=== PATIENT | female | born 1995 | race Caucasian/White ===

== ENCOUNTER 2016-12-18 08:59 | Emergency (ER) | payer OTHER ==
[~2016-12-18] VITALS: Ht 172.7 cm; Wt 129.3 kg
[~2016-12-18 08:59] MED LIST: ADIPEX-P37.5 M2 PO; SYNTHROID0.137 MG PO
[2016-12-18 09:19] VITALS: BP 128/96
--- NOTE | 2016-12-18 09:20 | Urgent Treatment Center Report ---
History of Present Issue Date/Time Seen by Provider 12/18/16 0937 Visit Reason Pt arrived:Walked Presenting Problem:RT EAR PAIN AND SORE THROAT. Location if Accident: Onset of symptoms date/time:/ or onset unknown for:MEDICAL HX UNKNOWN Have you (or family members/close friends) recently traveled outside the [place]? N If Yes, where/when: Have you had exposure to infectious disease within the past month? TB? Other? Specify: c/o primarily of sore throat. Right ear pain 2 weeks ago. 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 Ear pain improved and only intermittent now. Primarily at night and in the morning. "I am mostly worried about my sore throat and just want to be sure not strep and just drainage". Sore throat started day before yesterday. Initially intermittent but constant yesterday and continued this morning. Mucinex hasn't helped. Still using flonase. 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 Source patient Exam Limitations no limitations ALLERGIES Coded Allergies: No Known Allergies (08/31/16) Home Medications Reported Medications LEVOTHYROXINE SOD (Synthroid) 0.5 MG PO DAILY Phentermine HCl (Adipex-P) 37.5 MG PO DAILY History Medical History General CAD? No Angina: No [place]: No Hypertension? No Hyperlipidemia? No CHF? No DVT? No PE? No COPD? No Asthma? No Anemia? No GERD? No Gastric ulcers? No GI Bleed? No Hernia? No Thyroid Problems? No Hypothyroidism? No CVA? No Seizures? No Diabetes? No Renal Insuffiency? No UTI? No Stones? No BPH? No GB Disease: No Nephritic Syndrome? No Asplenia? No Hepatitis? No Sickle Cell Disease? No Arthritis? No Migraines? No Cataracts? No Glaucoma? No MRSA? No HIV? No TB? No Anxiety? No Depression? No Cancer? No Site: N More? No Immunization HX DT/Tetanus 1-4 Years Ago Surgical Hx Previous Surgery?N Social History Smoking Hx Smoker: Never Smoker Tobacco: No Alcohol Alcohol: No Review of Systems All Other Systems Reviewed and Negative Constitutional denies fever, denies malaise Eyes denies drainage ENT see HPI, other (no change hearing). denies: ear discharge, nose discharge, nose congestion, throat swelling. Respiratory cough (very little, "from a tickle"), denies shortness of breath, denies wheezing Cardiovascular denies chest pain Gastrointestinal denies no symptoms reported Musculoskeletal denies other (no aches) Skin denies rash Psychiatric/Neurological denies headache Physical Exam Vital Signs Vital Signs Date Time Temp Pulse Resp B/P Pulse O2 O2 Flow FiO2 Ox Delivery Rate 12/18 908 97.9 90 18 128/96 96 General Appearance normal appearance, no apparent distress Eye Exam - bilateral eye normal exam Ear, Nose, Throat normal ENT inspection Neck non-tender, supple Respiratory Status No: respiratory distress, productive cough, non productive cough. Lung Sounds anterior: lungs clear. posterior: lungs clear. bilateral: lungs clear. Cardiovascular regular rate/rhythm, no peripheral edema, no murmur Neurologic alert, oriented x 3 Skin normal color, warm/dry Lymphatic no adenopathy Medical Decision Making LABS/Meds/Orders Pt receiving controlled substance in ED? No Results/Orders Laboratory Tests 12/18/16910: Group A Strep Screen NOT DETECTED Orders Procedure Date/time Status [facility] STREP SCREEN 12/18 910 Complete Departure Departure Time of Disposition 916 Disposition [place] Home or Self Care(routine) Clinical Impression Primary Impression: Acute pharyngitis Qualifiers: Pharyngitis/tonsillitis etiology: unspecified etiology Qualified Code: J02.9 - Acute pharyngitis, unspecified Condition STABLE Referrals NO REFERRAL Follow up with primary care IMMEDIATELY for new or worsening symptoms OR no noticeable improvement over the next 48-72 hours. 911 for difficulty breathing or swallowing. Patient Instructions DI for Viral Pharyngitis Additional Instructions * No sign of bacterial infection. * Monitor Temp. Tylenol every 4 hours as needed and/or ibuprofen every 6 hours as needed (as long as your primary care doctor has told you that it is ok to take both) for fever/aches/pain. ER if fever no less than 101 despite tylenol and ibuprofen * Encourage fluids, water, gatorade, powerade, pedialyte if infant/toddler/child * warm salt water gargles * warm fluids * sore throat lozenges * sleep elevated * humidifier/vaporizer * Continue flonase 2 sprays each nostril daily but may take 2-3 days to notice improvement with it. * STOP mucinex unless your cough worsens or you develop chest congestion. Start claritin D instead. Either 12 hour twice a day or one 24 hour daily. * * Your throat swab was sent for culture. Those results are typically sent to your primary care. Be sure to follow up in 2-3 days if no improvement so they can review those results and treat if necessary. If you don't have primary care, I recommend you get one but in the mean time, you will have to return to a walk in clinic Discharge Counseling Counseled pt/family regarding diagnosis, test results, medications/RX, home care, follow up needs at [phone]
--- NOTE | 2016-12-18 09:20 | Urgent Treatment Center Report ---
History of Present Issue Date/Time Seen by Provider 12/18/16 0922 Visit Reason Pt arrived:Walked Presenting Problem:RT EAR PAIN AND SORE THROAT. Location if Accident: Onset of symptoms date/time:/ or onset unknown for:MEDICAL HX UNKNOWN Have you (or family members/close friends) recently traveled outside the [place]? N If Yes, where/when: Have you had exposure to infectious disease within the past month? TB? Other? Specify: c/o primarily of sore throat. Right ear pain 2 weeks ago. 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 Started flonase. Ear pain improved and only intermittent now. Primarily at night and in the morning. "I am mostly worried about my sore throat and just want to be sure not strep and just drainage". Sore throat started day before yesterday. Initially intermittent but constant yesterday and continued this morning. Mucinex hasn't helped. Still using flonase. 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 Source patient Exam Limitations no limitations ALLERGIES Coded Allergies: No Known Allergies (08/31/16) Home Medications Reported Medications LEVOTHYROXINE SOD (Synthroid) 0.5 MG PO DAILY Phentermine HCl (Adipex-P) 37.5 MG PO DAILY History Medical History General CAD? No Angina: No [place]: No Hypertension? No Hyperlipidemia? No CHF? No DVT? No PE? No COPD? No Asthma? No Anemia? No GERD? No Gastric ulcers? No GI Bleed? No Hernia? No Thyroid Problems? No Hypothyroidism? No CVA? No Seizures? No Diabetes? No Renal Insuffiency? No UTI? No Stones? No BPH? No GB Disease: No Nephritic Syndrome? No Asplenia? No Hepatitis? No Sickle Cell Disease? No Arthritis? No Migraines? No Cataracts? No Glaucoma? No MRSA? No HIV? No TB? No Anxiety? No Depression? No Cancer? No Site: N More? No Immunization HX DT/Tetanus 1-4 Years Ago Surgical Hx Previous Surgery?N Social History Smoking Hx Smoker: Never Smoker Tobacco: No Alcohol Alcohol: No Review of Systems All Other Systems Reviewed and Negative Constitutional denies fever, denies malaise Eyes denies drainage ENT see HPI, other (no change hearing). denies: ear discharge, nose discharge, nose congestion, throat swelling. Respiratory cough (very little, "from a tickle"), denies shortness of breath, denies wheezing Cardiovascular denies chest pain Gastrointestinal denies no symptoms reported Musculoskeletal denies other (no aches) Skin denies rash Psychiatric/Neurological denies headache Physical Exam Vital Signs Vital Signs Date Time Temp Pulse Resp B/P Pulse O2 O2 Flow FiO2 Ox Delivery Rate 12/18 908 97.9 90 18 128/96 96 General Appearance normal appearance, no apparent distress Eye Exam - bilateral eye normal exam Ear, Nose, Throat normal ENT inspection Neck non-tender, supple Respiratory Status No: respiratory distress, productive cough, non productive cough. Lung Sounds anterior: lungs clear. posterior: lungs clear. bilateral: lungs clear. Cardiovascular regular rate/rhythm, no peripheral edema, no murmur Neurologic alert, oriented x 3 Skin normal color, warm/dry Lymphatic no adenopathy Medical Decision Making LABS/Meds/Orders Pt receiving controlled substance in ED? No Results/Orders Laboratory Tests 12/18/16910: Group A Strep Screen NOT DETECTED Orders Procedure Date/time Status [facility] STREP SCREEN 12/18 910 Complete Departure Departure Time of Disposition 916 Disposition [place] Home or Self Care(routine) Clinical Impression Primary Impression: Acute pharyngitis Qualifiers: Pharyngitis/tonsillitis etiology: unspecified etiology Qualified Code: J02.9 - Acute pharyngitis, unspecified Condition STABLE Referrals NO REFERRAL Follow up with primary care IMMEDIATELY for new or worsening symptoms OR no noticeable improvement over the next 48-72 hours. 911 for difficulty breathing or swallowing. Patient Instructions DI for Viral Pharyngitis Additional Instructions * No sign of bacterial infection. * Monitor Temp. Tylenol every 4 hours as needed and/or ibuprofen every 6 hours as needed (as long as your primary care doctor has told you that it is ok to take both) for fever/aches/pain. ER if fever no less than 101 despite tylenol and ibuprofen * Encourage fluids, water, gatorade, powerade, pedialyte if infant/toddler/child * warm salt water gargles * warm fluids * sore throat lozenges * sleep elevated * humidifier/vaporizer * Continue flonase 2 sprays each nostril daily but may take 2-3 days to notice improvement with it. * STOP mucinex unless your cough worsens or you develop chest congestion. Start claritin D instead. Either 12 hour twice a day or one 24 hour daily. * * Your throat swab was sent for culture. Those results are typically sent to your primary care. Be sure to follow up in 2-3 days if no improvement so they can review those results and treat if necessary. If you don't have primary care, I recommend you get one but in the mean time, you will have to return to a walk in clinic Discharge Counseling Counseled pt/family regarding diagnosis, test results, medications/RX, home care, follow up needs at [phone]
--- OUTSIDE RECORDS SUMMARY | 2016-12-18 09:27 | External Medical Summary Rpt | CCD ---
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 S61.239A PNCTR W/O FB OF UNSP FINGER W/O DAMAGE TO NAIL, INIT Allergies, Adverse Reactions, Alerts Adverse Reaction to Substance Substance Reaction Severity NO KNOWN ALLERGIES Results Labs Lab Lab Date Result Refere Interp Status Commen Order Detail nces retati t Range on Varicella zoster virus IgG & IgM panel in Serum (02-10-2015 17:07) Varicel SEE complet la 015 BELOW ed zoster 17:07 virus IgG & IgM panel in Serum Hepatitis B virus surface Ab [Presence] in Serum by Immunoassay (02-10-2015 17:07) Hepatit POSITIV Negativ complet is B 015 E e ed virus 17:07 surface Ab [Presen ce] in Serum by Immunoa ssay
--- OUTSIDE RECORDS SUMMARY | 2016-12-18 09:27 | External Medical Summary Rpt | CCD ---
Author Author RAJWINDER Address Unknown Phone [email or web address] Purpose Continuity of Care Document - through 2016
--- OUTSIDE RECORDS SUMMARY | 2016-12-18 09:27 | External Medical Summary Rpt | CCD ---
Author Author RAJWINDER Address Unknown Phone Purpose Continuity of Care Document - through 2016
--- OUTSIDE RECORDS SUMMARY | 2016-12-18 09:27 | External Medical Summary Rpt | CCD ---
Author Author , RAJWINDER PURDY Address Unknown Phone [email or web address] Relationship Address Phone DANIAL, Next Of Kin Unknown Unavailable NEVIN Immunization Name Date Rout CVX Reac Dose Comm Prov Is Faci e tion ent ider Refu lity Give sed n HPV9 03-0 0.50 Hist [facility] No H198 5-20 mL oric CHATO A 17 al RAJINDER Info [place]AYITO rmat ion - Sour ce Unsp ecif ied HPV9 10-1 0.50 Hist [facility] No H198 4-20 mL oric CHATO A 16 al RAJINDER Info [place] rmat ion - Sour ce Unsp ecif ied HPV9 08-0 0.50 Hist [facility] No H198 9-20 mL oric CHATO A 16 al RAJINDER Info [place] rmat ion - Sour ce Unsp ecif ied José 04-2 10 999 Hist H198 No H198 o-IP 7-20 oric A A V 00 al Info rmat ion - Sour ce Unsp ecif ied MMR 04-2 3 999 Hist H198 No H198 7-20 oric A A 00 al Info rmat ion - Sour ce Unsp ecif ied DTaP 04-2 107 999 Hist H198 No H198 , UF 7-20 oric A A 00 al Info rmat ion - Sour ce Unsp ecif ied MMR 07-2 3 999 Hist H198 No H198 9-19 oric A A 97 al Info rmat ion - Sour ce Unsp ecif ied DTP- 07-2 22 999 Hist H198 No H198 Hib 9-19 oric A A 97 al Info rmat ion - Sour ce Unsp ecif ied Hep 03-1 8 999 Hist H198 No H198 B, 8-19 oric A A ped/ 97 al adol Info rmat ion - Sour ce Unsp ecif ied Vari 03-1 21 999 Hist H198 No H198 cell 8-19 oric A A a 97 al Info rmat ion - Sour ce Unsp ecif ied José 09-1 2 999 Hist H198 No H198 o-OP 7-19 oric A A V 96 al Info rmat ion - Sour ce Unsp ecif ied DTP- 09-1 22 999 Hist H198 No H198 Hib 7-19 oric A A 96 al Info rmat ion - Sour ce Unsp ecif ied DTP- 07-2 22 999 Hist H198 No H198 Hib 3-19 oric A A 96 al Info rmat ion - Sour ce Unsp ecif ied José 07-2 2 999 Hist H198 No H198 o-OP 3-19 oric A A V 96 al Info rmat ion - Sour ce Unsp ecif ied DTP- 05-2 22 999 Hist H198 No H198 Hib 8-19 oric A A 96 al Info rmat ion - Sour ce Unsp ecif ied [place] 05-2 Intr 2 999 Hist H198 No H198 o-OP 8-19 amus oric A A V 96 cula al r Info rmat ion - Sour ce Unsp ecif ied Hep 04-1 Intr 45 999 Hist H198 No H198 B, 6-19 amus oric A A UF 96 cula al r Info rmat ion - Sour ce Unsp ecif ied Hep 03-1 Intr 45 999 Hist [place] No [place] B, 6-19 amus oric UF 96 cula al r Info rmat ion - Sour ce Unsp ecif ied
--- OUTSIDE RECORDS SUMMARY | 2016-12-18 09:27 | External Medical Summary Rpt | CCD ---
Author Author , RAJWINDER PURDY Address Unknown Phone [email or web address] Name Relationship Address Phone DANIAL, Next [...] ied Hep 03-1 Intr 45 999 Hist [place] B, 6-19 amus oric UF 96 cula al r Info rmat ion - Sour ce Unsp ecif ied
--- OUTSIDE RECORDS SUMMARY | 2016-12-18 09:27 | External Medical Summary Rpt | CCD ---
Author Author , RAJWINDER Organization RAJWINDER Address Unknown Phone [email or web address] Purpose Continuity of Care Document - 04-07-2014 [...]
--- OUTSIDE RECORDS SUMMARY | 2016-12-18 09:28 | External Medical Summary Rpt ---
Author Author RAJWINDER Linares, [employer] Organization [employer] Address Unknown Phone Unavailable Results Hepatitis B virus surface Ab [Units/volume] in Serum by Immunoassay Observa Value Referen Units Interpr Notes Date tion ce etation Range Hepatitis NEGATIVE No No No Sep 7 B virus informati informati informati 2017 surface on in on in on in 12:44 PM Ab source source source [Units/vo data data data lume] in Serum by Immunoass ay Hepatic function 2000 panel in Serum or Plasma Observa Value Referen Units Interpr Notes Date tion ce etation Range Albumin 3.4 - 5.0 gm/dL Normal No Aug 31 [Mass/vol informati 2017 9:05 ume] in on in AM Serum or source Plasma data Alkaline 46 - 116 U/L Normal No Aug 31 phosphata informati 2017 9:05 se on in AM [Enzymati source c data activity/ volume] in Serum or Plasma Bilirubin 0.0 - 0.2 mg/dL Normal No Aug 31 .direct informati 2017 9:05 [Mass/vol on in AM ume] in source Serum or data Plasma Bilirubin 0 - 0.9 mg/dL Normal No Aug 31 .indirect informati 2017 9:05 on in AM [Mass/vol source ume] in data Serum or Plasma Bilirubin 0.2 - 1.0 mg/dL Normal No Aug 31 .total informati 2017 9:05 [Mass/vol on in AM ume] in source Serum or data Plasma Aspartate 15 - 37 U/L Normal No Aug 31 informati 2017 9:05 aminotran on in AM sferase source [Enzymati data c activity/ volume] in Serum or Plasma Alanine 12 - 78 U/L Normal No Aug 31 aminotran informati 2017 9:05 sferase on in AM [Enzymati source c data activity/ volume] in Serum or Plasma Protein 6.4 - 8.2 gm/dL Normal No Aug 31 [Mass/vol informati 2017 9:05 ume] in on in AM Serum or source Plasma data PT & aPTT panel in Platelet poor plasma by Coagulation assay Observa Value Referen Units Interpr Notes Date tion ce etation Range INR in 0.9 - 1.1 No Normal INDICATIO Aug 31 Blood by informati N 2016 9:05 Coagulati on in AM on assay source INR data RANGETHER APY FOR DVT, PE, ATRIAL FIB; 2.0 - 3.0PROPHY LAXIS FOR VTETHERAP Y FOR MECHANICA L HEART 2.5 - 3.5VALVE; PREVENTIO N OF SYSTEMICE MBOLISM SECONDARY TO AMI Prothromb 9.4 - SECONDS Normal No Aug 31 in time 11.8 informati 2017 9:05 (PT) in on in AM Platelet source poor data plasma by Coagulati on assay Activated 23.6 - SECONDS Normal No Aug 31 partial 34.0 informati 2016 9:05 thrombpla on in AM stin time source (aPTT) data in Platelet poor plasma by Coagulati on assay CBC W Auto Differential panel in Blood Observa Value Referen Units Interpr Notes Date tion ce etation Range Basophils 0 - 0.2 K/MM3 Normal No Aug 31 informati 2017 9:05 [#/volume on in AM ] in source Blood by data Automated count Basophils 0.1 - 2.0 % Normal No Aug 31 /100 informati 2017 9:05 leukocyte on in AM s in source Blood by data Automated count Eosinophi 0.0 - 0.4 K/mm3 Normal No Aug 31 ls informati 2016 9:05 [#/volume on in AM ] in source Blood by data Automated count Eosinophi 0.1 - % Normal No Aug 31 ls/100 12.0 informati 2016 9:05 leukocyte on in AM s in source Blood by data Automated count Granulocy 1.8 - 7.8 K/mm3 Normal No Aug 31 erinn informati 2016 9:05 [#/volume on in AM ] in source Blood by data Automated count Granulocy 37.0 - % Normal No Aug 31 erinn/100 80.0 informati 2016 9:05 leukocyte on in AM s in source Blood by data Automated count Hematocri 37.0 - % Normal No Aug 31 t [Volume 47.0 informati 2016 9:05 on in AM Fraction] source of Blood data Hemoglobi 12.2 - g/dL Normal No Aug 31 n 16.2 informati 2016 9:05 [Mass/vol on in AM ume] in source Blood data Lymphocyt 0.7 - 4.5 K/mm3 Normal No Aug 31 es informati 2016 9:05 [#/volume on in AM ] in source Unspecifi data ed specimen by Automated count Lymphocyt 10 - 50.0 % Normal No Aug 31 es informati 2016 9:05 [#/volume on in AM ] in source Unspecifi data ed specimen by Automated count Erythrocy 27 - 31.2 pg Low No Aug 31 te mean informati 2016 9:05 corpuscul on in AM ar source hemoglobi data n [Entitic mass] Erythrocy 31.8 - g/dl Normal No Aug 31 te mean 35.4 informati 2017 9:05 corpuscul on in AM ar source hemoglobi data n concentra tion [Mass/vol ume] by Automated count Erythrocy 82.2 - fl Low No Aug 31 te mean 97.8 informati 2016 9:05 corpuscul on in AM ar volume source [Entitic data volume] by Automated count Monocytes 0.1 - 1.0 K/mm3 Normal No Aug 31 informati 2017 9:05 [#/volume on in AM ] in source Blood by data Automated count Monocytes 1.7 - 9.3 % Normal No Aug 31 /100 informati 2017 9:05 leukocyte on in AM s in source Blood by data Automated count Platelet 7.4 - fl Normal No Aug 31 mean 10.4 informati 2017 9:05 volume on in AM [Entitic source volume] data in Blood by Automated count Platelets 142 - 424 K/mm3 Normal No Aug 31 informati 2017 9:05 [#/volume on in AM ] in source Blood data Erythrocy 4.2 - 5.4 M/mm3 Normal No Aug 31 erinn informati 2017 9:05 [#/volume on in AM ] in source Amniotic data fluid Erythrocy 11.5 - % Normal No Aug 31 te 17.5 informati 2017 9:05 distribut on in AM ion width source [Entitic data volume] by Automated count Leukocyte 4.8 - K/MM3 Normal No Aug 31 s 10.8 informati 2016 9:05 [#/volume on in AM ] in source Blood data US THYROID Observa Value Referen Units Interpr Notes Date tion ce etation Range Markos's No No No No May 30 Daughte informa informa informa informa 2016 rs tion in tion in tion in tion in 8:43 PM Medical source source source source data data data data Center\ .br\[address]\ .br\[place] [address]\. br\Radi ology\. br\MARCOS ENT NAME: Nevin Ordoñez MR#: [id number]\ .br\PRO CEDURE DATE: 14\.br\ ACCESSI ON #: [id number] ROOM#:\ .br\ORD ERING PHYS: Leanna Caldwel l\.br\E XAM: Thyroid ultraso und, 016.\.b r\KIN RISON: None.\. br\VICTOR MANUEL CATION: Enlarge d thyroid gland.\ .br\FIN DINGS:\ .br\The right thyroid gland measure s 5.1 x 1.3 x 1.9 cm, and the left thyroid \.br\gl and measure d 5.4 x 1.2 x 1.9 cm. The isthmus measure s 2 mm in thickne ss.\.br \Slight ly enlarge d heterog eneous parench ymal echo texture s are noted\. br\bila terally without discret e thyroid nodule or lesion. No abnorma l\.br\c alcific ation is noted. Symmetr ic color flows are noted bilater ally.\. br\IMPR ESSION: Slightl y enlarge d heterog eneous appeara nce of bilater al thyroid \.br\gl and without discret e thyroid nodule or lesion. \.br\TH IS IS AN ELECTRO NICALLY VERIFIE D REPORT\ .br\05/04 8:40 PM: Huong Kolb MD\.br\ Huong Kolb MD\.br\ pn\.br\ DD: 016\.br \TD: 016\.br \JOB #: [id number]\. br\Radi ology\. br\Page 1 of 1 COPY Thyrotropin [Units/volume] in Serum or Plasma Observa Value Referen Units Interpr Notes Date tion ce etation Range Thyrotrop 0.30 - u[iU]/mL No No Mar 16 in 5.60 informati informati 2015 3:29 [Units/vo on in on in AM lume] in source source Serum or data data Plasma Cobalamin (Vitamin B12) [Mass/volume] in Serum Observa Value Referen Units Interpr Notes Date tion ce etation Range Cobalamin 180 - 914 pg/mL No No May 18 (Vitamin informati informati 2015 3:29 B12) on in on in AM [Mass/vol source source ume] in data data Serum Folate [Mass/volume] in Serum or Plasma Observa Value Referen Units Interpr Notes Date tion ce etation Range Folate >5.21 ng/mL No No May 18 [Mass/vol informati informati 2015 3:29 ume] in on in on in AM Serum or source source Plasma data data Thyroperoxidase Ab [Units/volume] in Serum or Plasma by Immunoassay Observa Value Referen Units Interpr Notes Date tion ce etation Range Thyropero 0.0 - 9.0 [iU]/mL No No May 18 xidase Ab informati informati 2015 3:42 on in on in AM [Units/vo source source lume] in data data Serum or Plasma by Immunoass ay Thyroxine (T4) free [Mass/volume] in Serum or Plasma Observa Value Referen Units Interpr Notes Date ti ce etation Range Thyroxine 0.61 - No Low - May 18 (T4) 1.12 informati 2015 3:29 free on in AM [Mass/vol source ume] in data Serum or Plasma Triiodothyronine (T3) resin uptake in Serum or Plasma Observa Value Referen Units Interpr Notes Date tion ce etation Range Triiodoth 32.4 - % Low No May 18 yronine 48.4 informati 2015 3:29 (T3) on in AM resin source uptake in data Serum or Plasma CBC W Auto Differential panel in Blood Observa Value Referen Units Interpr Notes Date tion ce etation Range Leukocyte 3.4 - 10*3/uL No No May 17 s 11.3 informati informati 2015 [#/volume on in on in 10:48 PM ] in source source Blood by data data Automated count Erythrocy 3.65 - 10*6/uL No No May 17 erinn 5.16 informati informati 2015 [#/volume on in on in 10:48 PM ] in source source Blood by data data Automated count Hemoglobi 11.1 - g/dL No May 17 n 15.4 informati informati 2016 [Mass/vol on in on in 10:48 PM ume] in source source Blood data data Hematocri 33.3 - % No May 17 t [Volume 45.5 informati informati 2016 on in on in 10:48 PM Fraction] source source of Blood data data by Automated count Erythrocy 81.0 - fL No May 17 te mean 98.2 informati informati 2016 corpuscul on in on in 10:48 PM ar volume source source [Entitic data data volume] by Automated count Erythrocy 27.0 - pg No May 17 te mean 31.1 informati informati 2016 corpuscul on in on in 10:48 PM ar source source hemoglobi data data n [Entitic mass] by Automated count Erythrocy 32.6 - g/dL No May 17 te mean 34.9 informati informati 2016 corpuscul on in on in 10:48 PM ar source source hemoglobi data data n concentra tion [Mass/vol ume] by Automated count Erythrocy 11.5 - % No May 17 te 14.5 informati informati 2016 distribut on in on in 10:48 PM ion width source source [Ratio] data data by Automated count Platelet 6.9 - 9.9 fL High No May 17 mean informati 2016 volume on in 10:48 PM [Entitic source volume] data in Blood by Automated count Platelets 146 - 374 10*3/uL No May 17 informati informati 2016 [#/volume on in on in 10:48 PM ] in source source Blood by data data Automated count Neutrophi 48.8 - % No May 17 ls 75.9 informati informati 2016 [#/volume on in on in 10:48 PM ] in source source Blood by data data Automated count Lymphocyt 16.3 - % No May 17 es 43.9 informati informati 2016 [#/volume on in on in 10:48 PM ] in source source Blood by data data Automated count Monocytes 2.1 - % No May 17 +Macropha 13.3 informati informati 2016 ges/100 on in on in 10:48 PM leukocyte source source s in data data Blood Eosinophi 0.3 - 5.0 % No May 17 ls informati informati 2015 [#/volume on in on in 10:48 PM ] in source source Blood by data data Automated count Basophils 0.0 - 1.1 % No May 17 informati informati 2015 [#/volume on in on in 10:48 PM ] in source source Blood by data data Automated count Neutrophi 1.6 - 8.5 10*3/uL No May 17 ls informati informati 2015 [#/volume on in on in 10:48 PM ] in source source Blood by data data Automated count Lymphocyt 0.6 - 4.9 10*3/uL No May 17 es informati informati 2015 [#/volume on in on in 10:48 PM ] in Body source source fluid by data data Manual count Monocytes 0.0 - 1.4 10*3/uL No May 17 informati informati 2015 [#/volume on in on in 10:48 PM ] in source source Blood by data data Automated count Eosinophi 0.0 - 0.5 10*3/uL No May 17 ls informati informati 2015 [#/volume on in on in 10:48 PM ] in source source Blood by data data Automated count Basophils 0.0 - 0.1 10*3/uL No May 17 informati informati 2015 [#/volume on in on in 10:48 PM ] in source source Blood by data data Automated count Varicella zoster virus IgG & IgM panel in Serum Observa Value Referen Units Interpr Notes Date tion ce etation Range Varicel SEE No No No Test Feb 13 la BELOW informa informa informa 2014 zoster tion in tion in tion in 12:57 virus source source source PM IgG & data data data IgM panel Result in Serum Flag Unit RefValu e------ ------- ------- ------- ------- ------- ------- ------- ------- ------- -Varice lla-Zos ter Ab, IgM and IgG, SVarice lla-Zos ter Ab, IgM, S Negativ e Negativ eVarice lla-Zos ter Ab, IgG, S Negativ e------ ------- ------R EFERENC E VALUE-- ------- ------- ------- ---Vacc inated: Positiv e (>=1.1 AI)Unva ccinate d: Negativ e (<=0.8 AI)Vari brie IgG Antibod y Index <0.2Tes t Perform ed by:[facility] [id number], [place], [place] [address]Gu borator y Directo r: Vera Dodge M.D. Hepatitis B virus surface Ab [Presence] in Serum by Immunoassay Observa Value Referen Units Interpr Notes Date tion ce etation Range Hepatit POSITIV Negativ No No Patient Feb 11 is B E e informa informa is 2014 virus tion in tion in conside 12:22 surface source source red to PM Ab data data be [Presen immune ce] in to Serum infecti by on with Immunoa HBV. ssay Thyrotropin [Units/volume] in Serum or Plasma Observa Value Referen Units Interpr Notes Date tion ce etation Range Thyrotrop 0.30 - u[iU]/mL No No Apr 3 in 5.60 informati informati 2014 [Units/vo on in on in 10:05 PM lume] in source source Serum or data data Plasma Thyroxine (T4) free [Mass/volume] in Serum or Plasma Observa Value Referen Units Interpr Notes Date tion ce etation Range Thyroxine 0.61 - No No - Apr 07 (T4) 1.12 informati informati 2014 9:50 free on in on in PM [Mass/vol source source ume] in data data Serum or Plasma
--- OUTSIDE RECORDS SUMMARY | 2016-12-18 09:28 | External Medical Summary Rpt ---
Author Author RAJWINDER Linares, [employer] Organization [employer] Address Unknown Phone Unavailable Results Hepatitis [...] [address]\ .br\[place] [address]\. br\Radi ology\. br\MARCOS ENT NAME: Nevin Ordoñez MR#: [id number]\ .br\PRO CEDURE DATE: 14\.br\ ACCESSI ON #: [id number] ROOM#:\ .br\ORD ERING PHYS: Leanna Caldwel [...] pn\.br\ DD: 016\.br \TD: 016\.br \JOB #: [id number]\. br\Radi ology\. br\Page 1 of 1 COPY [...] Antibod y Index <0.2Tes t Perform ed by:[facility], [place], [place] [address]Rm borator y Directo r: Vera Dodge M.D. [...]
== END 2016-12-18 09:21 | disposition home or self-care (01) ==
LOC: UTC 08:59
DX: J02.9 Acute pharyngitis, unspecified (principal); Z79.899 Other long term (current) drug therapy

== ENCOUNTER 2017-02-01 13:38 | Emergency (ER) | payer OTHER ==
[~2017-02-01] VITALS: Ht 172.7 cm; Wt 129.3 kg
--- OUTSIDE RECORDS SUMMARY | 2017-02-01 13:40 | External Medical Summary Rpt | CCD ---
Author Author , NADEEN Organization NADEEN Address Unknown Phone [email or web address] Purpose Continuity of Care Document - 04-07-2014 [...] Order Detail nces retati t Range on Screening group A Streptococcus antigen (12-18-2016 09:11) Screeni NOT NOTDETE complet ng 017 [address]ED ed group A 09:11 D NOT DETECTE Strepto D L coccus antigen Comment: LOT # [id number] EXP DATE [id number] Streptococcus pyogenes Ag [Presence] in Unspecified specimen (12-18-2016 09:11) Strepto NOT NOTDETE complet coccus 0[address] ed pyogene 09:11 D s Ag [Presen ce] in Unspeci fied specime n Varicella zoster virus IgG & IgM panel [...]
--- OUTSIDE RECORDS SUMMARY | 2017-02-01 13:40 | External Medical Summary Rpt | CCD ---
Author Author , NADEEN Organization NADEEN Address Unknown Phone [email or web address] Purpose Continuity of Care Document - 04-07-2014 [...] D L coccus antigen Comment: LOT # [id number] EXP DATE [id number] Streptococcus pyogenes Ag [Presence] [...]
--- OUTSIDE RECORDS SUMMARY | 2017-02-01 13:41 | External Medical Summary Rpt | CCD ---
Author Author [employer] Organization [employer] Address Unknown Phone Unavailable Purpose Continuity of Care Document - through 2016
--- OUTSIDE RECORDS SUMMARY | 2017-02-01 13:41 | External Medical Summary Rpt | CCD ---
Author Author , RAJWINDER PURDY Address Unknown Phone [email or web address] Support Name Relationship Address Phone DANIAL, Next [...] ied Hep 03-1 Intr 45 999 Hist VT No VT B, 6-19 amus oric UF 96 cula al r Info rmat ion - Sour ce Unsp ecif ied
--- OUTSIDE RECORDS SUMMARY | 2017-02-01 13:41 | External Medical Summary Rpt | CCD ---
Author Author , RAJWINDER PURDY Address Unknown Phone [email or web address] Support Name Relationship Address Phone DANIAL, Next [...] ied Hep 03-1 Intr 45 999 Hist MD No MD B, 6-19 amus oric UF 96 cula al r Info rmat ion - Sour ce Unsp ecif ied
--- OUTSIDE RECORDS SUMMARY | 2017-02-01 13:42 | External Medical Summary Rpt ---
Author Author RAJWINDER Linares, RAJWINDER [employer] Organization [employer] Address Unknown Phone Unavailable Results Streptococcus pyogenes Ag [Presence] in Unspecified specimen Observa Value Referen Units Interpr Notes Date tion ce etation Range Strepto NOT NOTDETE No No LOT # Dec 18 coccus DETECTE CTED informa informa [id number] 2017 pyogene D tion in tion in EXP 9:11 AM s Ag source source DATE [Presen data data ce] in 3 Unspeci fied specime n Hepatitis B virus surface Ab [Units/volume] in [...] U/L Normal No Aug 31 aminotran informati 2016 9:05 sferase on in AM [Enzymati source [...] No Aug 31 in time 11.8 informati 2016 9:05 (PT) in on in AM Platelet [...] 0.2 K/MM3 Normal No Aug 31 informati 2016 9:05 [#/volume on in AM ] in source Blood by data Automated count Basophils 0.1 - 2.0 % Normal No Aug 31 /100 informati 2016 9:05 leukocyte on in AM [...] Normal No Aug 31 erinn/100 80.0 informati 2017 9:05 leukocyte on in AM s in source Blood by data Automated count Hematocri 37.0 - % Normal No Aug 31 t [Volume 47.0 informati 2017 9:05 on in AM Fraction] source of Blood data Hemoglobi 12.2 - g/dL Normal No Aug 31 n 16.2 informati 2017 9:05 [Mass/vol on in AM [...] Low No Aug 31 te mean informati 2017 9:05 corpuscul on in AM ar source hemoglobi data n [Entitic mass] Erythrocy 31.8 - g/dl Normal No Aug 31 te mean 35.4 informati 2017 9:05 corpuscul on in AM ar source hemoglobi data n concentra tion [Mass/vol ume] by Automated count Erythrocy 82.2 - fl Low No Aug 31 te mean 97.8 informati 2017 9:05 corpuscul on in AM ar volume [...] count Leukocyte 4.8 - K/MM3 Normal No Zachariah 29 s 10.8 informati 2016 9:05 [#/volume on in AM ] in source Blood data US THYROID Observa Value Referen Units Interpr Notes Date tion ce etation Range Markos's No No No No May 28 Daughte informa informa informa informa 2016 rs tion in tion in tion in tion in 8:43 PM Medical source source source source data data data data Center\ .br\[address]\ .br\[place] [address]\. br\Radi ology\. br\MARCOS ENT NAME: Marta Ordoñez MR#: [id number]\ .br\PRO CEDURE DATE: 016 14\.br\ ACCESSI ON #: [id number] ROOM#:\ .br\ORD ERING PHYS: Leanna Caldwel [...] pn\.br\ DD: 016\.br \TD: 016\.br \JOB #: [id number]\. br\Radi ology\. br\Page 1 of 1 COPY Thyrotropin [Units/volume] in Serum or Plasma Observa Value Referen Units Interpr Notes Date tion ce etation Range Thyrotrop 0.30 - u[iU]/mL No No May 16 in 5.60 informati informati 2016 3:29 [Units/vo on in on in AM lume] in source source Serum or data data Plasma Cobalamin (Vitamin B12) [Mass/volume] in Serum Observa Value Referen Units Interpr Notes Date ti ce etation Range Cobalamin 180 - 914 pg/mL No No May 18 (Vitamin informati informati 2016 3:29 B12) on in on in AM [Mass/vol source source ume] in data data Serum Folate [Mass/volume] in Serum or Plasma Observa Value Referen Units Interpr Notes Date ti ce etation Range Folate >5.21 ng/mL No No May 18 [Mass/vol informati informati 2016 3:29 ume] in on in on in AM Serum or source source Plasma data data Thyroperoxidase Ab [Units/volume] in Serum or Plasma by Immunoassay Observa Value Referen Units Interpr Notes Date etation Range Thyropero 0.0 - 9.0 [iU]/mL No No May 18 xidase Ab informati informati 2016 3:42 on in on in AM [Units/vo source source lume] in data data Serum or Plasma by Immunoass ay Thyroxine (T4) free [Mass/volume] in Serum or Plasma Observa Value Referen Units Interpr Notes Date ti ce etation Range Thyroxine 0.61 - No Low - May 16 (T4) 1.12 informati 2016 3:29 free on in AM [Mass/vol source ume] in data Serum or Plasma Triiodothyronine (T3) resin uptake in Serum or Plasma Observa Value Referen Units Interpr Notes Date ti ce etation Range Triiodoth 32.4 - % Low No May 16 yronine 48.4 informati 2016 3:29 (T3) on in AM resin source uptake in data Serum or Plasma CBC W Auto Differential panel in Blood Observa Value Referen Units Interpr Notes Date ti etation Range Leukocyte 3.4 - 10*3/uL No [...] No May 17 n 15.4 informati informati 2015 [Mass/vol on in on in 10:48 PM ume] in source source Blood data data Hematocri 33.3 - % No No May 17 t [Volume 45.5 informati informati 2016 on in on in 10:48 PM Fraction] source source of Blood data data by Automated count Erythrocy 81.0 - fL No No May 17 te mean 98.2 informati inform2015 corpuscul on in on in 10:48 PM ar volume source source [Entitic data data volume] by Automated count Erythrocy 27.0 - pg No No May 17 te mean 31.1 informati inform2015 corpuscul on in on in 10:48 PM ar source source hemoglobi data data n [Entitic mass] by Automated count Erythrocy 32.6 - g/dL No No May 17 te mean 34.9 informati inform2015 corpuscul on in on in 10:48 PM ar source source hemoglobi data data n concentra tion [Mass/vol ume] by Automated count Erythrocy 11.5 - % No No May 17 te 14.5 informati informati 2015 distribut on in on in 10:48 PM ion width source source [Ratio] data data by Automated count Platelet 6.9 - 9.9 fL High No May 17 mean 2015 volume on in 10:48 PM [Entitic source volume] data in Blood by Automated count Platelets 146 - 374 10*3/uL No No May 17 informati informati 2015 [#/volume on in on in 10:48 PM ] in source source Blood by data data Automated count Neutrophi 48.8 - % No No May 17 ls 75.9 informati informati 2015 [#/volume on in on in 10:48 PM ] in source source Blood by data data Automated count Lymphocyt 16.3 - % No May 17 es 43.9 ati inform2015 [#/volume on in on in 10:48 PM ] in source source Blood by data data Automated count Monocytes 2.1 - % No May 17 +Macropha 13.3 ati inform2015 ges/100 on in on in 10:48 PM leukocyte source source s in data data Blood Eosinophi 0.3 - 5.0 % No May 17 ls inform2015 [#/volume on in on in 10:48 PM ] in source source Blood by data data Automated count Basophils 0.0 - 1.1 % No May 17ati inform 2016 [#/volume on in on in 10:48 PM ] in source source Blood by data data Automated count Neutrophi 1.6 - 8.5 10*3/uL No May 17 ls 2015 [#/volume on in on in 10:48 PM ] in source source Blood by data data Automated count Lymphocyt 0.6 - 4.9 10*3/uL No May 17 es inform2015 [#/volume on in on in 10:48 PM ] in Body source source fluid by data data Manual count Monocytes 0.0 - 1.4 10*3/uL No May 17 inform 2016 [#/volume on in on in 10:48 PM ] in source source Blood by data data Automated count Eosinophi 0.0 - 0.5 10*3/uL No May 17 ls inform 2016 [#/volume on in on in 10:48 PM ] in source source Blood by data data Automated count Basophils 0.0 - 0.1 10*3/uL No May 17 informati inform2015 [#/volume on in on in 10:48 PM [...] Antibod y Index <0.2Tes t Perform ed by:[facility] [address], [place], [place] [address]Jf bormu y Directo r: Vera Dodge M.D. Hepatitis [...] Thyrotrop 0.30 - u[iU]/mL No No Apr 07 in 5.60 informati informati 2014 [Units/vo on [...]
--- OUTSIDE RECORDS SUMMARY | 2017-02-01 13:42 | External Medical Summary Rpt ---
Author Author RAJWINDER Linares, [employer]ER [employer] Organization [employer] Address Unknown Phone Unavailable Results Streptococcus pyogenes Ag [Presence] in Unspecified specimen Observa Value Referen Units Interpr Notes Date tion ce etation Range Strepto NOT NOTDETE No No LOT # Dec 18 coccus DETECTE CTED informa informa [id number] 2017 pyogene D tion in tion in [...] [address]\ .[place] [address]\. br\Radi ology\. br\MARCOS ENT NAME: Marta Ordoñez MR#: [id number]\ .br\PRO CEDURE DATE: 016 14\.br\ ACCESSI ON #: [id number] ROOM#:\ .br\ORD ERING PHYS: Leanna Caldwel [...] pn\.br\ DD: 016\.br \TD: 016\.br \JOB #: [id number]\. br\Radi ology\. br\Page 1 of 1 COPY [...] Antibod y Index <0.2Tes t Perform ed by:[facility] [place] [id number], [place], [place] [address]Ru bormu y Directo r: Vera Dodge M.D. [...]
[2017-02-01 14:26] VITALS: BP 132/78
--- NOTE | 2017-02-01 14:26 | [facility]gent Treatment Center Report ---
History of Present Issue Date/Time Seen by Provider 02/01/17 1345 Visit Reason Pt arrived:Walked Presenting Problem:PT STATES SORE THROAT Location if Accident: Onset of symptoms date/time:/ or onset unknown for:MEDICAL HX UNKNOWN Have you (or family members/close friends) recently traveled outside the [place]? N If Yes, where/when: Have you had exposure to infectious disease within the past month? TB? Other? Specify: c/o sore throat x 2-3 days. 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 Just wants a strep test. Claritin D has been helping. No fever, aches, chills. ALLERGIES Coded Allergies: No Known Allergies (08/31/16) Home Medications Reported Medications LEVOTHYROXINE SOD (Synthroid) 0.5 MG PO DAILY History Medical History General CAD? No Angina: No IA: No Hypertension? No Hyperlipidemia? No CHF? No DVT? No PE? No COPD? No Asthma? No Anemia? No GERD? No Gastric ulcers? No GI Bleed? No Hernia? No Thyroid Problems? No Hypothyroidism? No CVA? No Seizures? No Diabetes? No Renal Insuffiency? No UTI? No Stones? No BPH? No GB Disease: No Nephritic Syndrome? No Asplenia? No Hepatitis? No Sickle Cell Disease? No Arthritis? No Migraines? No Cataracts? No Glaucoma? No MRSA? No HIV? No TB? No Anxiety? No Depression? No Cancer? No Site: N More? No Immunization HX DT/Tetanus 1-4 Years Ago Surgical Hx Previous Surgery?N Social History Smoking Hx Smoker: Never Smoker Tobacco: No Alcohol Alcohol: No Review of Systems All Other Systems Reviewed and Negative Constitutional see HPI Eyes denies drainage ENT see HPI. denies: ear pain, nose discharge, nose congestion, throat swelling. Respiratory denies cough Gastrointestinal denies no symptoms reported Musculoskeletal denies joint pain Skin denies rash Psychiatric/Neurological denies headache Physical Exam Vital Signs Vital Signs Date Time Temp Pulse Resp B/P Pulse O2 O2 Flow FiO2 Ox Delivery Rate 02/01 1352 98.5 77 20 133/78 99 General Appearance no apparent distress, obese Ear, Nose, Throat normal ENT inspection (x/ cobblestoning, tonsils 1+) Neck non-tender, supple Respiratory Status No: respiratory distress, productive cough, non productive cough. Cardiovascular no peripheral edema Neurologic alert, oriented x 3 Skin normal color, warm/dry Lymphatic no adenopathy Medical Decision Making LABS/Meds/Orders Pt receiving controlled substance in ED? No Results/Orders Laboratory Tests 02/01/17 1354: Group A Strep Screen NOT DETECTED Orders Procedure Date/time Status [facility] STREP SCREEN 02/01 1354 Complete Departure Departure Time of Disposition 1422 Disposition DC Home or Self Care(routine) Clinical Impression Primary Impression: Acute pharyngitis Qualifiers: Pharyngitis/tonsillitis etiology: unspecified etiology Qualified Code: J02.9 - Acute pharyngitis, unspecified Condition STABLE Referrals NO REFERRAL Follow up IMMEDIATELY for new or worsening symptoms OR no noticeable improvement over the next 48-72 hours. 911 for difficulty breathing or swallowing. Patient Instructions DI for Viral Pharyngitis Additional Instructions * No sign of bacterial infection. Likely viral. Virus can take 7-14 days to run their course * Monitor Temp. FU if fevers develop * Continue claritin D * Encourage fluids, water, gatorade, powerade, pedialyte if infant/toddler/child * warm salt water gargles * warm fluids * sore throat lozenges * sleep elevated * humidifier/vaporizer * * Your throat swab was sent for culture. Those results are typically sent to your primary care. Be sure to follow up in 2-3 days if no improvement so they can review those results and treat if necessary. If you don't have primary care, I recommend you get one but in the mean time, you will have to return to a walk in clinic. Discharge Counseling Counseled pt/family regarding diagnosis, test results, medications/RX, home care, follow up needs at [id number]
== END 2017-02-01 14:26 | disposition home or self-care (01) ==
LOC: UTC 13:38
DX: J02.9 Acute pharyngitis, unspecified (principal)